=== PATIENT | male | born 1965 | race Caucasian/White ===

== ENCOUNTER → 2020-04-05 11:03 | Outpatient (CLI) | payer BC, SELFPAY ==
--- NOTE | ~2020-04-05 | XR_ITS ---
XR foot RT min 3V DATE: 04/05/2020 11:36 INDICATION: Right fifth toe injury TECHNIQUE: 4 views of right foot COMPARISON: None FINDINGS: There is a minimally displaced linear oblique fracture through the shaft and neck of the pr oximal phalanx of the fifth toe. There is no significant angulation. No other fracture or dislocation is evident. There is narrowing at the first metatarsophalangeal joint consistent with mild osteoarthritis. IMPRESSION: Minimally displaced fracture of the proximal phalanx of the fifth toe Reviewed, dictated and finalized at location A. IMPRESSION: Minimally displaced fracture of the proximal phalanx of the fifth t oe
== END ==
PROVIDERS: PCP Emergency Medicine; Visit Provider Emergency Medicine
DX: S99.921A Unspecified injury of right foot, initial encounter (principal); X58.XXXA Exposure to other specified factors, initial encounter
CPT/HCPCS: 73630

== ENCOUNTER → 2020-05-31 13:30 | Outpatient (CLI) | payer BC, SELFPAY ==
--- NOTE | ~2020-05-31 | XR_ITS ---
XR foot RT min 3V DATE: 05/31/2020 13:45 INDICATION: Minimally displaced fracture of proximal phalanx of fifth digit TECHNIQUE: 4 views COMPARISON: 04/05/2020 right foot FINDINGS: There is callus formation at the previously noted minimally displaced fracture of the shaft of the proximal phalanx of the fifth digit compatible with healing. The fracture line is less radiog raphically discernible. There is no significant interval change in position or alignment. No other fracture or dislocation or other significant bony abnormality is identified. IMPRESSION: Healing minimally displaced fracture of proximal phalanx of fifth digit, without apparent change in position or alignment Reviewed, dictated and finalized at location A. IMPRESSION: Healing minimally displaced fracture of proximal phalanx of fifth d igit, without apparent change in position or alignment
== END ==
PROVIDERS: PCP Emergency Medicine; Visit Provider Emergency Medicine
DX: S92.511D Displaced fracture of proximal phalanx of right lesser toe(s), subsequent encounter for fracture with routine healing (principal); X58.XXXD Exposure to other specified factors, subsequent encounter
CPT/HCPCS: 73630